=== PATIENT | male | born 1935 | race Two or more races ===

== ENCOUNTER 2025-02-11 20:12 | Emergency (ER) | payer MEDICARE, MEDICAID, SELFPAY ==
[2025-02-11 20:58] VITALS: BP 194/85; BP 208/84; PULSE 56; RESP 16; TEMP 36.7; O2SAT 97
--- NOTE | 2025-02-11 21:03 | XR_ITS ---
Examination: CT brain head without contrast. 2-D sagittal coronal reconstructions Date and time of exam:February 11, 2025 1005 hours INDICATIONS: Nausea vomiting and dizziness today CTDI: vol (mGy):47.2 DLP: (mGycm):910 Technique: Multiple CT axial sections of the brain have been obtained, 5 mm slice thickness. Contrast has not been administered. 2-D sagittal, coronal reconstructions have been obtained Low dose protocols were performed. One or more of the following dose reduction techniques were used; automated exposure control, adjustment of the mA and/or KV according to patient size, use of iterative reconstruction technique. Findings: No significant ventricular enlargement. 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 No mass effect or midline shift Basal cisterns are not remarkable. Fourth ventricle is midline. Cranial vault intact. Impression: Negative for acute hemorrhage, mass effect or midline shift If symptoms persist, consider brain MRI follow-up, stroke protocol
--- NOTE | 2025-02-11 21:03 | PD.EDRME ---
Rapid Medical Screening Exam RME Arrival date/time: 02/11/25 20:12 Chief Complaint: General Adult/Misc Complain Time Seen by Provider: 02/11/25 20:50 Vital signs: Vital Signs Temperature 98.0 F 02/11/25 20:58 Pulse Rate 56 L 02/11/25 20:58 Respiratory Rate 16 02/11/25 20:58 Blood Pressure 208/84 H 02/11/25 20:58 Pulse Oximetry (%) 97 02/11/25 20:58 Oxygen Delivery Method Room Air 02/11/25 20:58 RME Narrative: Dizziness, nausea/vomiting, general weakness since this afternoon.
[2025-02-11 21:26] LABS: Basophils # (Auto) 0.0 Thou/mm3 (0.0-0.2); Basophils % (Auto) 0 % (0-2.5); Eosinophils # (Auto) 0.0 Thou/mm3 (0.0-0.5); Eosinophils % (Auto) 0 % (0-10); Hematocrit 44.2 % (41.0-53.0); Hemoglobin 14.7 g/dL (13.5-16.0); Immature Granulocytes Auto 0.03 Thou/mm3 (0.00-0.00); Lymphocytes # (Auto) 0.6 Thou/mm3 (1.0-4.8); Lymphocytes % (Auto) 7 % (10-50); Mean Corpuscular HGB Conc 33.3 g/dl (31.0-37.0); Mean Corpuscular Hemoglobin 29.4 pg (25.0-35.0); Mean Corpuscular Volume 88 fL (80-100); Monocytes # (Auto) 0.2 Thou/mm3 (0.0-0.8); Monocytes % (Auto) 2 % (0-12); Neutrophils # (Auto) 8.7 Thou/mm3 (1.8-7.7); Neutrophils % (Auto) 91 % (37-80); Nucleated Red Blood Cell # 0.00 Thou/mm3 (0.00-0.00); Nucleated Red Blood Cell % 0 /100 WBC (0); Platelet Count 190 Thou/mm3 (140-440); RDW Standard Deviation 46.9 fL (35.1-43.9); Red Blood Count 5.00 Miln/mm3 (4.50-5.90); White Blood Count 9.6 Thou/mm3 (3.8-10.6)
[2025-02-11 21:53] LABS: Alanine Aminotransferase 17 U/L (10-49); Albumin, Serum 4.8 gm/dL (3.4-4.8); Albumin/Globulin Ratio 1.7 (1.2-2.2); Alkaline Phosphatase 134 U/L (46-116); Anion Gap 12 (7-16); Aspartate Amino Transferase 20 U/L (0-34); BUN/Creatinine Ratio 13 Ratio (12-20); Bilirubin,Total 1.1 mg/dL (0.3-1.2); Blood Urea Nitrogen 17 mg/dL (9-23); Calcium 9.5 mg/dL (8.3-10.6); Calcium (Corrected) 9.5 mg/dL (8.5-10.1); Carbon Dioxide 25.3 mMol/L (20.0-31.0); Chloride 111 mMol/L (98-107); Creatinine (Component) 1.3 mg/dL (0.6-1.3); Globulin 2.8 gm/dL (2.3-3.5); Glucose 175 mg/dL (74-106); Lipase 27 U/L (12-53); Osmolality,Calculated 299 (275-295); Potassium 4.2 mMol/L (3.4-5.1); Sodium 148 mMol/L (136-145); Total Protein 7.6 gm/dL (5.7-8.2); Troponin I < 0.002 ng/mL (0.0-0.045); eGFR 53 See Note
[2025-02-11] MEDS: ONDANSETRON INJ 2 MG/ML INJ 2 ML 4 MG IM (21:59)
[2025-02-11 22:16] LABS: Collection Type, Urine Clean Catch; Squamous Epithelial Cell,Urine 0 /hpf (0-5)
[2025-02-11 22:24] LABS: Bilirubin,Urine Negative (Negative); Blood,Urine Trace (Negative); Clarity,Urine Clear (Clear/Hazy); Color,Urine Yellow (Lt Yel-Yel); Glucose, Urine Negative (Negative); Hyaline Casts,Urine < 1 /hpf (0-1); Ketones,Urine 1+ (Negative); Leukocyte Esterase,Urine Negative (Negative); Nitrite,Urine Negative (Negative); PH,Urine 6.0 (5.0-7.0); Protein,Urine Trace (Neg - Trace); RBC,Urine 4 /hpf (0-3); Specific Gravity,Urine 1.023 (1.001-1.035); Urobilinogen,Urine Negative mg/dL (0.0-1.0); WBC,Urine 1 /hpf (0-5)
--- NOTE | 2025-02-12 00:35 | PD.EDDIZZY ---
ED Dizzyness RME/HPI General Chief Complaint: General Adult/Misc Complain Stated Complaint: N/V, WEAKNESS, DIZZINESS Time Seen by Provider: 02/11/25 20:50 Source: patient, family, RN notes reviewed and old records reviewed Arrival date/time: 02/11/25 20:12 Mode of arrival: wheelchair Limitations: no limitations RME / HPI RME / HPI Narrative: 89yom presents to ED with son for dizziness and nausea/vomiting that initiated this afternoon. Patient c/o generalized weakness 2/2 frequent vomiting. No fever, sob, cp, diarrhea, abdominal pain, headache, vision changes, syncope or neck pain reported. 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 Home Medications ?Medication ?Instructions ?Recorded ?Confirmed losartan 100 mg tablet 100 mg PO QDAY 12/12/17 10/20/21 Previous Rx's ?Medication ?Instructions ?Recorded aspirin 81 mg tablet,delayed 81 mg PO QDAY #30 tabs 05/03/20 release atorvastatin 20 mg tablet 40 mg (2 x 20 mg) PO HS #30 tabs 05/03/20 isosorbide mononitrate 30 mg 30 mg PO QDAY #30 tabs 05/03/20 tablet,extended release 24 hr nitroglycerin 0.4 mg sublingual 0.4 mg SL [id number] PRN Chest Pain 05/03/20 tablet (Nitrostat) #100 tabs meclizine 25 mg tablet 25 mg PO BID #14 tabs 07/08/20 meclizine 25 mg tablet 25 mg PO TID PRN dizziness #14 tabs 12/15/22 acetaminophen 325 mg tablet (Pain 650 mg (2 x 325 mg) PO Q6H PRN 03/21/23 Relief (acetaminophen)) fever or pain #30 tabs amoxicillin 875 mg-potassium 1 tab PO Q12H #14 tabs 03/21/23 clavulanate 125 mg tablet meclizine 25 mg tablet 25 mg PO Q8HR PRN dizziness #20 02/12/25 tabs ondansetron 4 mg disintegrating 4 mg PO Q6H PRN nausea and 02/12/25 tablet vomiting #10 tabs Allergies Allergy/AdvReac Type Severity Reaction Status Date / Time tamsulosin Allergy Unknown Verified 02/11/25 20:13 Review of Systems Review of Systems Systems Reviewed: All systems reviewed, normal except as documented Constitutional Constitutional: Denies fever(s), Denies headache(s) and Reports weakness ENT Ears, Nose, Mouth, and Throat: Reports dizziness and Denies headache(s) Cardiovascular Cardiovascular: Denies chest pain and Denies dyspnea Respiratory Respiratory: Denies dyspnea Gastrointestinal Gastrointestinal: Denies abdominal pain, Denies loose stools, Reports nausea and Reports vomiting Neurologic Neurologic: Reports dizziness, Denies localized weakness, Denies headache(s) and Reports weakness Past Medical History Past Medical History CARDIAC: Positive Cardiac Disorders, Hypercholesterolemia and Hypertension GASTROINTESTINAL: Positive Gastrointestinal Disorders and Gastroesophageal Reflux Disease GENITOURINARY: Positive Genitourinary Disorders, Renal Disease and Benign Prostatic Hyperplasia MUSCULOSKELETAL: Positive Arthritis OTHER HISTORY: Positive Chicken Pox Social History SMOKING STATUS: Never smoker SUBSTANCE USE: does not use ALCOHOL: Never ED Exam General Limitations: Present no limitations General appearance: Present alert and in no apparent distress Head Head exam: Present atraumatic and normocephalic Eye Eye exam: Present normal appearance, PERRL and EOMI ENT ENT exam: Present normal exam and mucous membranes moist Neck Neck exam: Present normal inspection and full ROM Chest Chest inspection: Present normal inspection and symmetric chest wall rise Respiratory Respiratory exam: Present normal lung sounds bilaterally; Absent respiratory distress Cardiovascular Cardiovascular exam: Present regular rate and normal rhythm Abdominal Exam Abdominal exam: Present soft; Absent distention or tenderness Extremities Exam Extremities exam: Present normal inspection and full ROM Neurological Exam Neurological exam: Present alert and oriented X3 Psychiatric Psychiatric exam: Present normal affect and normal mood Skin Skin exam: Present warm, dry, intact and normal color Course Quality Measures none Orders Category Date Time Status EKG (ED ONLY) *Do not use* NOW Care 02/11/25 20:[address] head/brain wo con Stat Exams 02/11/25 21:03 Completed EKG (ED Only) Stat Exams 02/11/25 20:13 Ordered CBC Stat Lab 02/11/25 21:13 Completed CMP [Comprehensive Metabolic Panel] Stat Lab 02/11/25 21:13 Completed Lipase Stat Lab 02/11/25 21:13 Completed Troponin I Stat Lab 02/11/25 21:13 Completed UA [Urinalysis] Stat Lab 02/11/25 21:45 Completed Ondansetron Inj [Zofran Inj] Med 02/11/25 21:03 Discontinued 4 mg IM X1 ONE Vital Signs Vital signs: Vital Signs Temperature 98.0 F 02/11/25 20:58 Pulse Rate 56 L 02/11/25 20:58 Respiratory Rate 16 02/11/25 20:58 Blood Pressure 208/84 H 02/11/25 20:58 Pulse Oximetry (%) 97 02/11/25 20:58 Oxygen Delivery Method Room Air 02/11/25 20:58 PROCEDURES: EKG Interpretation #1: Date of EK02/11/25 Rate: 63 Interpretation: Interpreted by me EKG Impression: Normal sinus rhythm (with sinus arrythymia), No acute ST-T changes, No ectopy, No ischemic changes, Normal QRS, Normal intervals and Normal axis Additional EKG comment: No stemi. Inverted twaves AVL, V2 Dizziness MDM Narrative MDM Narrative:: 89yom presents to ED with son for dizziness and nausea/vomiting that initiated this afternoon. Patient c/o generalized weakness 2/2 frequent vomiting. No fever, sob, cp, diarrhea, abdominal pain, headache, vision changes, syncope or neck pain reported. 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 He is feeling better, tolerating po. ED workup reassuring. Possible viral illness. Encouraged rest, fluids, symptomatic treatment prn. Stable for dc, RTED precautions given. Patient data External records reviewed:: [facility] previous records (03/21/23 ED visit for rib fracture) Clinical information provided by:: patient and family Social determinants that could affect healthcare access:: none Patient has the following chronic illnesses:: HTN, GERD How is presenting disease/condition affected by chronic disease/condition?: uneffected by Evaluation data The following diagnostics were reviewed and interpreted by me:: lab results, radiology exam(s) and EKG tracing(s) Lab and/or radiology exams considered but not ordered:: none Interpretation Summary: No leukocytosis No anemia Mild hypernatremia 148 - mild dehydration No CHEMA Lipase wnl UA 1+ ketones- mild dehydration CT head: no ICH per my read Medications / Prescriptions Medications or Prescriptions considered but not ordered:: no antibiotics recommended at this time Medication administrations:: Medication Administration History Discontinued Medications Ondansetron HCl (Ondansetron Inj 2 Mg/Ml Inj 2 Ml) 4 mg IM X1 ONE; Protocol Stop: 02/11/25 21:04 Last Admin: 02/11/25 21:59 Dose: 4 mg Documented By: CVL above medication administered in ED Consultations Consultation(s) initiated? (list below): No Diagnosis Dizziness Differential Diagnosis: other (dizziness, BPPV, CVA, Gastroenteritis, Viral illness, Otitis media) Most likely diagnosis given after review of the tests above:: n/v, dizziness Admission Indicated Admission indicated?: not indicated Admission Request Was there a request for admission?: No Disposition Plan Disposition Plan: Discharge Discharge Attestation Discharge Attestation: The patient and all family members were given an opportunity to ask questions and understood the discharge instructions. Discharge instructions specifically effects, indications for sooner follow up or return to the emergency department, and the expected course of current diagnosis. Patient condition: Stable Discharge Plan Plan Patient Disposition: HOME (Self Care) Patient condition on transfer: Stable Prescriptions/Referrals Prescriptions/Med Rec: New ondansetron 4 mg tablet,disintegrating 4 mg PO Q6H PRN (Reason: nausea and vomiting) Qty: 10 0RF meclizine 25 mg tablet 25 mg PO Q8HR PRN (Reason: dizziness) Qty: 20 0RF No Action aspirin 81 mg tablet,delayed release (DR/EC) 81 mg PO QDAY Qty: 30 0RF isosorbide mononitrate 30 mg Tablet Extended Release 24 Hr 30 mg PO QDAY Qty: 30 0RF nitroglycerin [Nitrostat] 0.4 mg Tablet, Sublingual 0.4 mg SL [id number] PRN (Reason: Chest Pain) Qty: 100 0RF atorvastatin 20 mg Tablet 40 mg PO HS Qty: 30 0RF meclizine 25 mg tablet 25 mg PO BID Qty: 14 0RF losartan 100 mg Tablet 100 mg PO QDAY meclizine 25 mg tablet 25 mg PO TID PRN (Reason: dizziness) Qty: 14 0RF acetaminophen [Pain Relief (acetaminophen)] 325 mg tablet 650 mg PO Q6H PRN (Reason: fever or pain) Qty: 30 0RF amoxicillin-pot clavulanate 875-125 mg tablet 1 tab PO Q12H Qty: 14 0RF Referrals: No Primary/Family,Physician [Primary Care Provider] - In 1 week Problem List Clinical Impression: Nausea & vomiting, Dizziness Patient/Caregiver Discharge Instructions Education Materials: ED Vomiting (Adult) Print Language: Vietnamese Stand Alone Forms: [employer] Award Info., Patient Portal Info Letter PA/REALTY LOAN SPECIALIST Supervising Physician PA/REALTY LOAN SPECIALIST Supervising Physician: Nolvia
[2025-02-12 00:47] VITALS: BP 185/72; PULSE 52; RESP 18; TEMP 37; O2SAT 97
== END 2025-02-12 00:57 | disposition home or self-care (01) ==
PROVIDERS: Physician Assistant; Emergency Provider Emergency Medicine
DX: R42 Dizziness and giddiness (principal); R11.2 Nausea with vomiting, unspecified; E87.0 Hyperosmolality and hypernatremia
CPT/HCPCS: 36415; 70450; 80053; 81001; 83690; 84484; 85025; 93005; 96372; 99284; J2405

== ENCOUNTER 2025-07-18 12:47 | Emergency (ER) | payer MEDICARE, MEDICAID, SELFPAY ==
[2025-07-18 12:49] VITALS: BMI 32.1
[2025-07-18 13:02] VITALS: BP 134/74; PULSE 73; RESP 18; TEMP 36.9; O2SAT 97
--- NOTE | 2025-07-18 13:09 | XR_ITS ---
EXAMINATION: PA lateral chest 2 views TECHNIQUE: Upright PA and lateral chest 2 views Date and time: July 18, 2025, 1316 hours, comparison March 21, 2023 INDICATIONS: Chest pain shortness of breath difficulty breathing 3 weeks. FINDINGS: Moderate hyperexpansion No significant cardiac enlargement No pneumonia or pulmonary edema Orthopedic sideplates about healed fractures right seventh and eighth ribs No acute rib fractures IMPRESSION: Moderate hyperexpansion No pneumonia or pulmonary edema
--- NOTE | 2025-07-18 13:14 | PD.EDRME ---
Rapid Medical Screening Exam RME Arrival date/time: 07/18/25 12:47 89-year-old male presents to the emergency department for complaint of abdominal pain and abdominal distention as well as shortness of breath Chief Complaint: Shortness of Breath/Dyspnea Vital signs: Vital Signs Temperature 98.5 F 07/18/25 13:02 Pulse Rate 73 07/18/25 13:02 Respiratory Rate 18 07/18/25 13:02 Blood Pressure 134/74 H 07/18/25 13:02 Pulse Oximetry (%) 97 07/18/25 13:02 Oxygen Delivery Method Room Air 07/18/25 13:02 Vital signs reviewed by provider: Yes Exam: On exam patient does not appear toxic no acute respiratory distress Clinical Impression: Lab work imaging and EKG obtained
[2025-07-18 14:09] LABS: Basophils # (Auto) 0.0 Thou/mm3 (0.0-0.2); Basophils % (Auto) 0 % (0-2.5); Eosinophils # (Auto) 0.1 Thou/mm3 (0.0-0.5); Eosinophils % (Auto) 1 % (0-10); Hematocrit 43.9 % (41.0-53.0); Hemoglobin 14.7 g/dL (13.5-16.0); Immature Granulocytes Auto 0.03 Thou/mm3 (0.00-0.00); Lymphocytes # (Auto) 1.1 Thou/mm3 (1.0-4.8); Lymphocytes % (Auto) 19 % (10-50); Mean Corpuscular HGB Conc 33.5 g/dl (31.0-37.0); Mean Corpuscular Hemoglobin 30.0 pg (25.0-35.0); Mean Corpuscular Volume 90 fL (80-100); Monocytes # (Auto) 0.5 Thou/mm3 (0.0-0.8); Monocytes % (Auto) 8 % (0-12); Neutrophils # (Auto) 4.0 Thou/mm3 (1.8-7.7); Neutrophils % (Auto) 71 % (37-80); Nucleated Red Blood Cell # 0.00 Thou/mm3 (0.00-0.00); Nucleated Red Blood Cell % 0 /100 WBC (0); Platelet Count 200 Thou/mm3 (140-440); RDW Standard Deviation 46.7 fL (35.1-43.9); Red Blood Count 4.90 Miln/mm3 (4.50-5.90); White Blood Count 5.7 Thou/mm3 (3.8-10.6)
[2025-07-18 14:17] LABS: INR 1.1 (0.9-1.3); Partial Thromboplastin Time 30.2 Seconds (22.0-36.0); Prothrombin Time 11.6 Seconds (9.0-12.2)
[2025-07-18 14:21] LABS: Alanine Aminotransferase 13 U/L (10-49); Albumin, Serum 4.7 gm/dL (3.4-4.8); Albumin/Globulin Ratio 1.7 (1.2-2.2); Alkaline Phosphatase 128 U/L (46-116); Anion Gap 10 (7-16); Aspartate Amino Transferase 22 U/L (0-34); BUN/Creatinine Ratio 14 Ratio (12-20); Bilirubin,Total 1.1 mg/dL (0.3-1.2); Blood Urea Nitrogen 17 mg/dL (9-23); Calcium 9.0 mg/dL (8.3-10.6); Calcium (Corrected) 9.0 mg/dL (8.5-10.1); Carbon Dioxide 22.9 mMol/L (20.0-31.0); Chloride 109 mMol/L (98-107); Creatinine (Component) 1.2 mg/dL (0.6-1.3); Estimated Creatinine Clearance 39.7 mL/min (>60); Globulin 2.7 gm/dL (2.3-3.5); Glucose 121 mg/dL (74-106); Lipase 36 U/L (12-53); Magnesium 1.9 mg/dL (1.6-2.6); Osmolality,Calculated 285 (275-295); Potassium 4.1 mMol/L (3.4-5.1); Sodium 142 mMol/L (136-145); Total Protein 7.4 gm/dL (5.7-8.2); Troponin I < 0.020 ng/mL (0.0-0.045); eGFR 59 See Note
[2025-07-18 14:36] LABS: B-Type Natriuretic Peptide 106 pg/mL (0-100)
[2025-07-18 16:00] VITALS: BP 166/82; PULSE 61; RESP 16; TEMP 36.6; O2SAT 97
--- NOTE | 2025-07-18 17:41 | EDNOTE_ITS ---
ED General RME/HPI General Chief complaint: Shortness of Breath/Dyspnea Stated complaint: dificulty breathing Time Seen by Provider: 07/18/25 14:09 Arrival date/time: 07/18/25 12:47 CC: Intermittent shortness of breath with swollen abdomen or onset for the past couple of weeks intermittent in nature not seen by his PCP denies any fever chills chest pain difficulty breathing headache nausea vomiting or diarrhea. RME / HPI RME / HPI narrative: 07/18/25 12:47 89-year-old male presents to the emergency department for complaint of abdominal pain and abdominal distention as well as shortness of breath Exam: On exam patient does not appear toxic no acute respiratory distress Impression: Lab work imaging and EKG obtained Related Data Home Medications ?Medication ?Instructions ?Recorded ?Confirmed losartan 100 mg tablet 100 mg PO QDAY 12/12/17 03/0 04/05 Previous Rx's ?Medication ?Instructions ?Recorded aspirin 81 mg tablet,delayed 81 mg PO QDAY #30 tabs release atorvastatin 20 mg tablet 40 mg (2 x 20 mg) PO HS #30 tabs 05/03/20 isosorbide mononitrate 30 mg 30 mg PO QDAY #30 tabs tablet,extended release 24 hr nitroglycerin 0.4 mg sublingual 0.4 mg SL [id number] PRN Chest Pain 05/03/20 tablet (Nitrostat) #100 tabs meclizine 25 mg tablet 25 mg PO BID #14 tabs meclizine 25 mg tablet 25 mg PO TID PRN dizziness # 14 tabs 12/15/22 acetaminophen 325 mg tablet (Pain 650 mg (2 x 325 mg) PO Q6H PRN 03/21/23 Relief (acetaminophen)) fever or pain #30 tabs amoxicillin 875 mg-potassium 1 tab PO Q12H #14 tabs clavulanate 125 mg tablet meclizine 25 mg tablet 25 mg PO Q8HR PRN dizziness #20 02/12/25 tabs ondansetron 4 mg disintegrating 4 mg PO Q6H PRN nausea and 02/12/25 tablet vomiting #10 tabs Allergies Allergy/AdvReac Type Severity Reaction Status Date / Time tamsulosin Allergy Unknown Verified 07/18/25 12:54 Review of Systems Review of Systems Narrative Review of Systems: GEN: No fever, no chills, no weight loss EYES: No discharge, no visual changes, no pain HEENT: No ear pain, no congestion, no sore throat PULM: No shortness of breath, no cough, no congestion CV: No chest pain, no dyspnea on exertion, no palpitations GI: No nausea, no vomiting, no diarrhea, no pain, no constipation : No frequency, no urgency, no dysuria MUSC/SKEL: No joint pain, no back pain SKIN: No rash PSYCH: No hallucinations, no depression HEME/LYMPH: No easy bleeding or bruising tendencies NEURO: No weakness, no headache Past Medical History Past Medical History NEUROLOGIC: Negative Neurological Disorders or Seizures CARDIAC: Positive Cardiac Disorders, Hypercholesterolemia and Hypertension; Negative Congestive Heart Failure RESPIRATORY: Negative Chronic Obstructive Pulmonary Disease (COPD) or Asthma GASTROINTESTINAL: Positive Gastrointestinal Disorders and Gastroesophageal Reflux Disease GENITOURINARY: Positive Genitourinary Disorders, Renal Disease and Benign Prostatic Hyperplasia MUSCULOSKELETAL: Positive Musculoskeletal Disorders and Arthritis ENDOCRINE: Negative Endocrine Disorders, Diabetes Mellitus Type 1 or Diabetes Mellitus Type 2 HEMATOLOGIC: Negative Blood Disorders or Sickle Cell Disease OTHER HISTORY: Positive Chicken Pox; Negative Falls, Blood Transfusions or Anesthesia Reactions Family History FAMILY HISTORY: Negative Family Neurologic Problems Social History SMOKING STATUS: Never smoker SUBSTANCE USE: does not use ED Exam Narrative Physical exam: [General: Not in any acute distress Head normocephalic HEENT: Within acceptable limits Neck is supple nontender Chest equal chest rise nontender to palpation Respiratory: Clear to auscultation no wheezes crackles or rubs CV: Rate rhythm is regular no murmurs rubs or clicks Abdomen is mildly distended secondary to body habitus soft nontender no masses positive bowel sounds all 4 quadrants Back: No CVA tenderness no spinous process tenderness from cervical spine thoracic and lumbar spine Skin: Intact no petechiae rash induration ulceration or crepitus Extremities: Moving all extremity against resistance cap refill less than 2 seconds neurosensory intact Neuro: Awake alert oriented x3 Glascow coma 15 no focal deficits] Course Course Course Narrative: There is no acute finding with this patient. Will discharge the patient home the patient is to follow-up with his primary care doctor. Quality Measures none Orders Category Date Time Status EKG (ED ONLY) *Do not use* NOW Care 07/18/25 13:09 Completed EKG (ED Only) Stat Exams 07/18/25 13:09 Ordered XR chest 2V Stat Exams 07/18/25 13:09 Completed B-Type Natriuretic Peptide Stat Lab 07/18/25 13:51 Completed CBC Stat Lab 07/18/25 13:51 Completed Comprehensive Metabolic Panel Stat Lab 07/18/25 13:51 Completed Lipase Stat Lab 07/18/25 13:51 Completed Magnesium Stat Lab 07/18/25 13:51 Completed Partial Thromboplastin Time Stat Lab 07/18/25 13:51 Completed Prothrombin Time with INR Stat Lab 07/18/25 13:51 Completed Troponin I Stat Lab 07/18/25 13:51 Completed Vital Signs Vital signs: Vital Signs Temperature 98.5 F 07/18/25 13:02 Pulse Rate 73 07/18/25 13:02 Respiratory Rate 18 07/18/25 13:02 Blood Pressure 134/74 H 07/18/25 13:02 Pulse Oximetry (%) 97 07/18/25 13:02 Oxygen Delivery Method Room Air 07/18/25 13:02 Discharge Plan Plan Patient Disposition: HOME (Self Care) Patient condition on transfer: Stable Prescriptions/Referrals Prescriptions/Med Rec: No Action aspirin 81 mg tablet,delayed release (DR/EC) 81 mg PO QDAY Qty: 30 0RF isosorbide mononitrate 30 mg Tablet Extended Release 24 Hr 30 mg PO QDAY Qty: 30 0RF nitroglycerin [Nitrostat] 0.4 mg Tablet, Sublingual 0.4 mg SL [id number] PRN (Reason: Chest Pain) Qty: 100 0RF atorvastatin 20 mg Tablet 40 mg PO HS Qty: 30 0RF meclizine 25 mg tablet 25 mg PO BID Qty: 14 0RF losartan 100 mg Tablet 100 mg PO QDAY meclizine 25 mg tablet 25 mg PO TID PRN (Reason: dizziness) Qty: 14 0RF acetaminophen [Pain Relief (acetaminophen)] 325 mg tablet 650 mg PO Q6H PRN (Reason: fever or pain) Qty: 30 0RF amoxicillin-pot clavulanate 875-125 mg tablet 1 tab PO Q12H Qty: 14 0RF ondansetron 4 mg tablet,disintegrating 4 mg PO Q6H PRN (Reason: nausea and vomiting) Qty: 10 0RF meclizine 25 mg tablet 25 mg PO Q8HR PRN (Reason: dizziness) Qty: 20 0RF Referrals: Tuyet El MD [Primary Care Provider] - In 1 week Problem List Clinical Impression: Shortness of breath Patient/Caregiver Discharge Instructions Other Activity Instructions:: Sleep with elevated in the pillows, follow-up with your primary care doctor if there is worsening of symptoms return the emergency room meetly for further evaluation. Education Materials: ED Shortness of Breath (Dyspnea) Print Language: Irish Stand Alone Forms: [employer] Award Info., Work/School Release, Patient Portal Info Letter PA/PLANETARIUM TECHNICIAN Supervising Physician PA/PLANETARIUM TECHNICIAN Supervising Physician: Vidal Nolan ENP [facility] Clinical Information Provided by: patient and family Medical Records reviewed [facility] Meds/Rx considered, not ordered None Labs/Rad/Tests considered, not ordered None Chronic Illness/Social Conditions which may negatively complicate care or outcome(s)-explain: None or not applicable EKG EKG not done Labs Labs: interpreted by [facility] Lab(s) Interpretation(s): CBC shows no acute leukocytosis anemia thrombocytopenia Coags within acceptable limits CMP shows no significant electrolyte imbalances other than glucose of 121 renal impairment transaminitis or T. bili elevation. Troponin is negative BNP is 106. Lipase is 36. Imaging Imaging Interpretation(s): No significant finding prior emergent or immediate intervention.
== END 2025-07-18 17:58 | disposition home or self-care (01) ==
PROVIDERS: Nurse Practitioner Primary Care; Emergency Provider Family Medicine; PCP Family Medicine
DX: R06.02 Shortness of breath (principal); R07.9 Chest pain, unspecified; R94.31 Abnormal electrocardiogram [ECG] [EKG]; I10 Essential (primary) hypertension; E78.00 Pure hypercholesterolemia, unspecified
CPT/HCPCS: 36415; 71046; 80053; 83690; 83735; 83880; 84484; 85025; 85610; 85730; 93005; 99283